=== PATIENT | female | born 1980 | race Caucasian/White ===

== ENCOUNTER 2017-08-08 20:00 | Emergency (ER) | payer MEDICAID ==
[~2017-08-08 20:00] MED LIST: DOCU-131 PO; IBUP-1222 PO; LEVE100020 PO; METR500T PO; ONDA4TAB7 PO; OXYC-302 PO; PREN1TAB60 PO; TRAZ100T15 PO
[2017-08-08] MEDS ORDERED: SODIUM CHLORIDE 0.9% 1,000 ML IV ONE (20:04)
[2017-08-08] MEDS ORDERED: ONDANSETRON ODT 4 MG ONE (20:22)
[2017-08-08] MEDS ORDERED: ONDANSETRON 2MG/ML, 2ML ONE (20:23)
[2017-08-08] MEDS ORDERED: FENTANYL PF 100 MCG/2ML ONE (20:23)
[2017-08-08 20:28] LABS: BASOPHILS # (AUTO) 0.05 x10^3/uL (0-0.1); BASOPHILS % (AUTO) 1 % (0-1); EOSINOPHILS # (AUTO) 0.27 x10^3/uL (0-0.4); EOSINOPHILS % (AUTO) 5 % (1-7); LYMPHOCYTES # (AUTO) 1.79 x10^3/uL (1-3.4); LYMPHOCYTES % (AUTO) 35 % (22-44); MD NO; MEAN CORPUSCULAR HEMOGLOBIN 30.3 pg (27.0-34.8); MEAN CORPUSCULAR HGB CONC 33.4 g/dL (32.4-35.8); MEAN CORPUSCULAR VOLUME 90.6 fL (80-100); MEAN PLATELET VOLUME 8.6 fL (7.4-10.4); MONOCYTES # (AUTO) 0.38 x10^3/uL (0.2-0.8); MONOCYTES % (AUTO) 8 % (2-9); NEUTROPHILS % (AUTO) 51 % (42-75); PLATELET COUNT 203 x10^3/uL (130-400); RED BLOOD COUNT 4.41 x10^6/uL (3.82-5.3); RED CELL DISTRIBUTION WIDTH 13.4 % (9.6-15.2)
[2017-08-08] MEDS ORDERED: SODIUM CHLORIDE FLUSH 10ML SYR IVF ONE (20:30)
[2017-08-08] MEDS ORDERED: ONDANSETRON 2MG/ML, 2ML IVPush ONE (20:30)
[2017-08-08] MEDS ORDERED: FENTANYL PF 100 MCG/2ML IV ONE (20:30)
[2017-08-08 20:40] LABS: ALANINE AMINOTRANSFERASE 16 U/L (12-78); ALBUMIN 3.8 g/dL (3.4-5.0); ANION GAP 8 mmol/L (5-15); CALCIUM 8.6 mg/dL (8.5-10.1); CHLORIDE 107 mmol/L (98-107); CREATININE 0.75 mg/dL (0.55-1.02)
[2017-08-08 20:42] LABS: ALKALINE PHOSPHATASE 263 U/L (45-117); BILIRUBIN,TOTAL 0.3 mg/dL (0.2-1.0); TOTAL PROTEIN 7.4 g/dL (6.4-8.2)
[2017-08-08] MEDS ORDERED: NALOXONE 0.4 MG/ML, 1ML ONE (20:52)
[2017-08-08 21:56] VITALS: BP 111/74
== END 2017-08-08 22:05 | disposition home or self-care (01) ==
LOC: ED 21:50
DX: R10.31 Right lower quadrant pain (principal)
CPT/HCPCS: 36415; 74176; 80053; 83690; 85025; 96361; 96374; 96375; 99285; J2405; J3010; J7030

== ENCOUNTER 2018-04-28 20:18 | Emergency (ER) | payer SELFPAY ==
[~2018-04-28] VITALS: Ht 167.6 cm; Wt 88.6 kg
[~2018-04-28 20:18] MED LIST changes: +TRAZ-137 PO; -TRAZ100T15 PO
[2018-04-28 20:20] VITALS: BP 116/56
[2018-04-28] MEDS ORDERED: ALBUTEROL MDI (20:24)
== END 2018-04-28 20:48 | disposition home or self-care (01) ==
LOC: ED 20:36
DX: J20.8 Acute bronchitis due to other specified organisms (principal); S16.1XXA Strain of muscle, fascia and tendon at neck level, initial encounter; G40.909 Epilepsy, unspecified, not intractable, without status epilepticus; Z90.710 Acquired absence of both cervix and uterus; Z90.49 Acquired absence of other specified parts of digestive tract; M54.9 Dorsalgia, unspecified; G89.29 Other chronic pain; Z72.9 Problem related to lifestyle, unspecified; F17.200 Nicotine dependence, unspecified, uncomplicated; X58.XXXA Exposure to other specified factors, initial encounter; Y93.89 Activity, other specified; Y99.8 Other external cause status; Y92.89 Other specified places as the place of occurrence of the external cause
CPT/HCPCS: 99283; 99406

== ENCOUNTER 2018-06-20 10:43 | Emergency (ER) | payer SELFPAY ==
[~2018-06-20] VITALS: Ht 167.6 cm; Wt 92.2 kg
[~2018-06-20 10:43] MED LIST changes: +ALBUTEROL MDI
--- NOTE | 2018-06-20 11:42 | NUR ---
PT PRESENTED TO ED WITH " PAIN ALL OVER". PT A&OX4. ASSESSMENT COMPLETED. AWAITING MD.
[2018-06-20] MEDS ORDERED: IBUPROFEN 200 MG TABLET PO ONE (13:00)
[2018-06-20] MEDS ORDERED: IBUPROFEN 200 MG TABLET ONE (13:04)
[2018-06-20 13:38] VITALS: BP 107/45
== END 2018-06-20 13:40 | disposition home or self-care (01) ==
LOC: ED 11:44
DX: R07.89 Other chest pain (principal); L24.89 Irritant contact dermatitis due to other agents; J04.0 Acute laryngitis; F17.200 Nicotine dependence, unspecified, uncomplicated; Z90.89 Acquired absence of other organs; Z90.49 Acquired absence of other specified parts of digestive tract; Z90.710 Acquired absence of both cervix and uterus
CPT/HCPCS: 71046; 93005; 99283

== ENCOUNTER 2018-08-27 23:59 | Emergency (ER) | payer MEDICAID ==
[~2018-08-27] VITALS: Ht 167.6 cm; Wt 85.5 kg
[2018-08-28 00:03] VITALS: BP 111/64
== END 2018-08-28 01:35 | disposition home or self-care (01) ==
LOC: ED 23:59
DX: S40.262A Insect bite (nonvenomous) of left shoulder, initial encounter (principal); S40.261A Insect bite (nonvenomous) of right shoulder, initial encounter; W57.XXXA Bitten or stung by nonvenomous insect and other nonvenomous arthropods, initial encounter; Y93.89 Activity, other specified; Y92.89 Other specified places as the place of occurrence of the external cause; Y99.8 Other external cause status
CPT/HCPCS: 99283

== ENCOUNTER 2018-12-07 06:45 | Emergency (ER) | payer MEDICAID ==
[~2018-12-07] VITALS: Ht 167.6 cm; Wt 84.0 kg
[2018-12-07 06:54] VITALS: BP 102/64
[2018-12-07 07:50] LABS: BASOPHILS # (AUTO) 0.04 x10^3/uL (0-0.1); BASOPHILS % (AUTO) 1 % (0-1); EOSINOPHILS # (AUTO) 0.31 x10^3/uL (0-0.4); EOSINOPHILS % (AUTO) 8 % (1-7); LYMPHOCYTES # (AUTO) 1.46 x10^3/uL (1-3.4); LYMPHOCYTES % (AUTO) 35 % (22-44); MD NO; MEAN CORPUSCULAR HEMOGLOBIN 29.8 pg (27.0-34.8); MEAN CORPUSCULAR HGB CONC 32.8 g/dL (32.4-35.8); MEAN PLATELET VOLUME 8.2 fL (7.4-10.4); MONOCYTES # (AUTO) 0.36 x10^3/uL (0.2-0.8); MONOCYTES % (AUTO) 9 % (2-9); NEUTROPHILS # (AUTO) 1.96 x10^3/uL (1.8-6.8); NEUTROPHILS % (AUTO) 47 % (42-75); PLATELET COUNT 194 x10^3/uL (130-400); RED BLOOD COUNT 4.26 x10^6/uL (3.82-5.3); RED CELL DISTRIBUTION WIDTH 15.5 % (9.6-15.2)
[2018-12-07 08:00] LABS: ALANINE AMINOTRANSFERASE 20 U/L (12-78); ALBUMIN 3.2 g/dL (3.4-5.0); ANION GAP 7 mmol/L (5-15); CALCIUM 8.3 mg/dL (8.5-10.1); CHLORIDE 112 mmol/L (98-107); CREATININE 0.62 mg/dL (0.55-1.02)
[2018-12-07 08:02] LABS: ALKALINE PHOSPHATASE 217 U/L (45-117); BILIRUBIN,TOTAL 0.2 mg/dL (0.2-1.0); TOTAL PROTEIN 6.8 g/dL (6.4-8.2)
[2018-12-07 08:15] LABS: MICROSCOPIC AUTO
--- NOTE | 2018-12-07 08:17 | NUR ---
PATIENT BACK FROM IMAGING.
[2018-12-07 08:18] LABS: CULTURE INDICATED? YES
== END 2018-12-07 09:07 | disposition home or self-care (01) ==
LOC: ED 08:37
DX: N39.0 Urinary tract infection, site not specified (principal); J45.909 Unspecified asthma, uncomplicated; Z72.9 Problem related to lifestyle, unspecified; Z90.710 Acquired absence of both cervix and uterus; Z90.89 Acquired absence of other organs
CPT/HCPCS: 36415; 76830; 80053; 81001; 85025; 87086; 99284